=== PATIENT | female | born 1990 | race African-American/Black ===

== ENCOUNTER → 2018-12-18 | Outpatient (CLI) | payer MEDICAID ==
--- NOTE | 2018-12-18 15:43 | RADIOLOGY REPORT (SQ) ---
EXAM DESCRIPTION: U/S [id number] TRNABD 1GES W/ODOP COMPLETED DATE/TIME: 12/18/2018 3:21 pm REASON FOR STUDY: ENCTR FOR SUPERVISION OF OTHER NORMAL , FIRST TRIMESTER (Z34.81) Z34.81 ENCOUNTER FOR SUPRVSN OF NORMAL , FIRST TRIM COMPARISON: None. TECHNIQUE: Transabdominal static and realtime grayscale images acquired of the pelvis. Additional se lected spectral and color Doppler images recorded. All images stored on PACs. bHCG: Not available. CLINICAL DATES: FABIANA: 07/22/2019. EGA: 9 weeks 1 day LIMITATIONS: None. FINDINGS: FETUS: Twin Living intrauterine . BABY A BABY B ULTRASOUND EGA: 9 weeks 5 days ULTRASOUND EGA: 9 weeks 2 days ULTRASOUND FABIANA: 07/18/2019 ULTRASOUND FABIANA: 07/22/2019 EFW: Not applicable less than 20 weeks. EFW: Not applicable less than 20 week s CRL: 2.87 cm CRL: 2.49 cm FHR: 163 beats per minute. FHR: 171 beats per minute SURVEY: Too early to assess. SURVEY: Too early to assess. AMNIOTIC FLUID: Adequate amount. AMNIOTIC FLUID: Adequate amount. PLACENTA: Not yet developed due to early gestation. PLACENTA: Not yet developed due to early ge station. SUBCHORIONIC BLEED: No. SUBCHORIONIC BLEED: No. SIZE OF BLEED: Not applicable. SIZE OF BLEED: Not applicable. UTERUS: The uterus measures 11.6 x 9.8 x 8.7 cm. No masses. No anomalies. CERVICAL LENGTH: 3.1 cm Closed. RIGHT ADNEXA: The right ovary measures 3.1 x 2.1 x 2.9 cm. Dominant right ovarian follicle. Normal ovary with normal vascular flow. No adnexal free fluid. LEFT ADNEXA: Not visualized sonographically. FREE FLUID: None. OTHER: No other significant finding. IMPRESSION: TWIN LIVING INTRAUTERINE . EGA: TWIN A 9 WEEKS 5 DAYS. EGA TWIN B: 9 WEEKS 2 DAYS Trimester of : First - 0 to 13 weeks. TECHNICAL DOCUMENTATION: JOB ID: [id number] [employer]- All Rights Reserved rev Reading location - IP/workstation name: [email or web address]
--- NOTE | 2018-12-18 16:13 | RADIOLOGY REPORT (SQ) ---
EXAM DESCRIPTION: U/S [id number] + EACH ADDIT GEST COMPLETE DATE/TIME: 12/18/2018 3:21 pm REASON FOR STUDY: SUPERVISION OF NORMAL FIRST TRIMESTER Z34.81 ENCOUNTER FOR SUPRVSN OF N ORMAL , FIRST TRIM FINDINGS: Please see combined report for performance of procedure and radiologic supervision and int erpretation. IMPRESSION: Please see combined report for performance of procedure and radiologic supervision and i nterpretation. Reading location - IP/workstation name: [email or web address]
== END ==
LOC: RAD 14:47
PROVIDERS: ATTEND Midwife
DX: Z34.81 Encounter for supervision of other normal pregnancy, first trimester (principal)
CPT/HCPCS: 76801; 76802

== ENCOUNTER → 2020-02-28 | Outpatient (CLI) | payer MEDICAID ==
--- NOTE | 2020-02-28 16:32 | RADIOLOGY REPORT (SQ) ---
EXAM DESCRIPTION: U/S NON-OB PELVIS TV W/O DOP IMAGES COMPLETED DATE/TIME: 02/28/2020 4:22 pm REASON FOR STUDY: R10.0 PELVIC AND PERINEAL PAIN R10.2 PELVIC AND PERINEAL PAIN COMPARISON: None. TECHNIQUE: Dynamic and static grayscale images acquired of the pelvis via transvaginal approach and recorded on PACS. Additional selected color Doppler and spectral images recorded. LIMITATIONS: None. FINDINGS: UTERUS: Contour normal. No mass. ENDOMETRIAL STRIPE: IUD present. No focal or generalized thickening. No masses. CERVIX: No nabothian cysts. RIGHT OVARY AND DOPPLER: Normal size. No worrisome masses. Normal arterial vascular flow without evid ence for torsion. LEFT OVARY AND DOPPLER: Normal size. 1.7 cm and 2.4 cm cysts. No worrisome masses. Normal arterial vascular flow without evidence for torsion. FREE FLUID: None noted. OTHER: No other significant finding. MEASUREMENTS: UTERUS: 4.4 x 4.7 x 7.4 cm. ENDOMETRIAL STRIPE: 9 mm. RIGHT OVARY: 1.5 x 1.6 x 3.1 cm. LEFT OVARY: 2.9 x 3.1 x 3.7 cm. IMPRESSION: LEFT OVARIAN CYSTS. OTHERWISE UNREMARKABLE TRANSVAGINAL PELVIC ULTRASOUND. TECHNICAL DOCUMENTATION: JOB ID: [id number] [employer]- All Rights Reserved Reading location - IP/workstation name: [email or web address]
== END ==
LOC: RAD 15:40
PROVIDERS: ATTEND Nurse Practitioner Family
DX: N83.292 Other ovarian cyst, left side (principal); Z30.431 Encounter for routine checking of intrauterine contraceptive device
CPT/HCPCS: 76830